=== PATIENT | male | born 1990 | race Caucasian/White ===

== ENCOUNTER 2023-05-27 10:37 | Emergency (ER) | payer MEDICAID ==
[~2023-05-27] VITALS: Ht 160 cm; Wt 88.0 kg
[2023-05-27 11:24] VITALS: BP 116/83; PULSE 69; RESP 18; TEMP 97.7; O2SAT 98
[2023-05-27] MEDS ORDERED: LIDOCAINE MPF 1% 10 MG/ML VIAL INJ ONE (12:50)
[2023-05-27] MEDS ORDERED: BACITRACIN OINT 500 UNITS/GM PKT TP ONE (12:50)
== END 2023-05-27 13:56 | disposition home or self-care (01) ==
LOC: MED 10:37
DX: S61.211A Laceration without foreign body of left index finger without damage to nail, initial encounter (principal); W26.8XXA Contact with other sharp object(s), not elsewhere classified, initial encounter; Y93.89 Activity, other specified; Y92.89 Other specified places as the place of occurrence of the external cause; Y99.8 Other external cause status
CPT/HCPCS: 12001; 99282; J2001